=== PATIENT | female | born 1965 ===

== ENCOUNTER 2017-08-30 22:22 | Emergency (ER) | payer MEDICAID, OTHER ==
[2017-08-30 22:39] VITALS: BP 131/74; PULSE 68; TEMP 98.4; O2SAT 96
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
[2017-08-30 23:48] VITALS: RESP 20
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
== END 2017-08-30 23:47 | disposition home or self-care (01) ==
LOC: C.ER 22:22
DX: S80.00XA Contusion of unspecified knee, initial encounter (principal); V49.9XXA Car occupant (driver) (passenger) injured in unspecified traffic accident, initial encounter; M54.5 Low back pain